=== PATIENT | male | born 1955 | race Two or more races ===

== ENCOUNTER 2020-01-27 12:10 | Emergency (ER) | payer OTHER ==
[~2020-01-27] VITALS: Ht 165.1 cm; Wt 68.9 kg
[2020-01-27] MEDS ORDERED: SODIUM CHLORIDE 0.9% 1,000 ML IV ONE (12:23)
[2020-01-27 12:40] VITALS: BP 138/84
[2020-01-27 13:39] LABS: Basophils # (auto) 0.1 10 ^3/uL (0-0.2); Basophils % (auto) 1.5 % (0.0-2.0); Eosinophils # (auto) 0.2 10 ^3/uL (0-0.8); Eosinophils % (auto) 3.8 % (0.0-7.0); Hematocrit 41.8 % (41.0-53.0); Hemoglobin 14.3 g/dL (13.5-17.5); Lymphocytes # (auto) 2.9 10 ^3/uL (0.4-5.4); Lymphocytes % (auto) 48.2 % (10.0-50.0); Mean Corpuscular Hgb Conc. 34.2 g/dL (32.0-36.0); Mean Corpuscular Volume 90.8 fL (80.0-100.0); Monocytes # (auto) 0.4 10 ^3/uL (0-1.3); Monocytes % (auto) 7.1 % (0.0-12.0); Neutrophils # (auto) 2.4 10 ^3/uL (1.6-8.6); Neutrophils % (auto) 39.4 % (37.0-80.0); Nucleated Red Blood Cells % 0.1 %; Platelet Count (auto) 194 10^3/uL (140-450); Red Cell Distribution Width 13.6 % (11.8-14.3)
[2020-01-27 13:57] LABS: Albumin 3.3 g/dL (3.4-5.0); Anion Gap 6 (5-15); Blood Urea Nitrogen 14 mg/dL (7-18); Calcium 7.8 mg/dL (8.5-10.1); Carbon Dioxide 26 mmol/L (21-32); Chloride 108 mmol/L (98-107); Glucose 99 mg/dL (74-106); Potassium 3.6 mmol/L (3.5-5.1); Sodium 140 mmol/L (136-145)
[2020-01-27 14:01] LABS: Urine Amorphous Crystal FEW /hpf (None Seen); Urine Bacteria NONE SEEN /hpf (None Seen); Urine Blood Negative /uL (Negative); Urine Specific Gravity 1.005 (1.001-1.035); Urine WBC 41 /hpf (0 - 3)
[2020-01-27 14:02] LABS: Alanine Aminotransferase 24 U/L (16-61); Alkaline Phosphatase 60 U/L (45-117); Aspartate Aminotransferase 11 U/L (15-37); BUN/Creatinine Ratio 13.9; Bilirubin, Total 0.4 mg/dL (0.2-1.0); GFR African American 96 mL/min; GFR Non-African American 79 mL/min; Total Protein 6.7 g/dL (6.4-8.2)
[2020-01-27 14:06] LABS: INR 0.97 (0.9-1.15); Partial Thromboplastin Time 27.5 sec (23.64-32.05)
== END 2020-01-27 15:15 | disposition home or self-care (01) ==
LOC: ER 12:10
DX: K92.2 Gastrointestinal hemorrhage, unspecified (principal); K64.9 Unspecified hemorrhoids
CPT/HCPCS: 36415; 71045; 74176; 80053; 81001; 84484; 85025; 85610; 85730; 99285; J7030

== ENCOUNTER 2020-06-21 11:43 | Inpatient (IN) | payer OTHER ==
[~2020-06-21] VITALS: Ht 165.1 cm; Wt 76.5 kg
[2020-06-21 12:40] LABS: Basophils # (auto) 0 10 ^3/uL (0-0.2); Basophils % (auto) 0.4 % (0.0-2.0); Eosinophils # (auto) 0 10 ^3/uL (0-0.8); Eosinophils % (auto) 0.4 % (0.0-7.0); Hematocrit 38.2 % (41.0-53.0); Hemoglobin 12.7 g/dL (13.5-17.5); Lymphocytes # (auto) 0.7 10 ^3/uL (0.4-5.4); Lymphocytes % (auto) 8.9 % (10.0-50.0); Mean Corpuscular Hemoglobin 29.9 pg (28.0-32.0); Mean Corpuscular Hgb Conc. 33.3 g/dL (32.0-36.0); Mean Corpuscular Volume 89.8 fL (80.0-100.0); Monocytes # (auto) 0.7 10 ^3/uL (0-1.3); Monocytes % (auto) 8.6 % (0.0-12.0); Neutrophils # (auto) 6.4 10 ^3/uL (1.6-8.6); Neutrophils % (auto) 81.7 % (37.0-80.0); Nucleated Red Blood Cells % 0.2 %; Platelet Count (auto) 407 10^3/uL (140-450); Red Blood Cells 4.26 10^6/uL (4.5-5.90); Red Cell Distribution Width 13.5 % (11.8-14.3); White Blood Cell 7.9 10^3/uL (4.4-10.8)
[2020-06-21 12:43] LABS: Albumin 2.1 g/dL (3.4-5.0); Calcium 8.6 mg/dL (8.5-10.1); Potassium 4.5 mmol/L (3.5-5.1)
[2020-06-21] MEDS ORDERED: DexAMETHasone 4 MG TAB PO ONE (12:45)
[2020-06-21] MEDS ORDERED: ASCORBIC ACID 500 MG TAB PO ONE (12:45)
[2020-06-21] MEDS ORDERED: AZITHROMYCIN 500MG/ 250ML 250 ML IV ONE (12:45)
[2020-06-21] MEDS ORDERED: ZINC SULFATE 220mg CAP or TAB PO ONE (12:45)
[2020-06-21 12:48] LABS: BUN/Creatinine Ratio 16.7; Bilirubin, Total 0.5 mg/dL (0.2-1.0); Total Protein 7.1 g/dL (6.4-8.2)
[2020-06-21] MEDS ORDERED: MORPHINE SULF INJ 2 MG/ML SYRINGE 1ML IV PRN ×3 (13:30→15:15)
[2020-06-21] MEDS ORDERED: NITROGLYCERIN 0.4 MG SL TAB SL PRN ×2 (13:30→15:15)
[2020-06-21] MEDS ORDERED: ASCORBIC ACID 500 MG TAB ONE (13:48)
[2020-06-21] MEDS ORDERED: ACETAMINOPHEN 325 MG TAB PO ONE (15:00)
[2020-06-21] MEDS ORDERED: ACETAMINOPHEN 500 MG TAB PO PRN (15:15)
[2020-06-21] MEDS ORDERED: ACETAMINOPHEN 325 MG TAB PO PRN (15:15)
[2020-06-21] MEDS ORDERED: HYDROcodone-ACET 5/325MG TAB PO PRN (15:15)
[2020-06-21] MEDS ORDERED: PIPERACILLIN-TAZOB 3.375GM 100 ML IV ONE (15:15)
[2020-06-21] MEDS ORDERED: FUROSEMIDE 20 MG/2 ML VIAL IV ONE (15:15)
[2020-06-21] MEDS ORDERED: FAMOTIDINE (10MG/ML) 2ML VL IV ONE (15:15)
[2020-06-21] MEDS ORDERED: LORazepam 0.5 MG TAB PO PRN (15:15)
[2020-06-21] MEDS ORDERED: THIAMINE 100mg/ml INJ (200mg/2ml VIAL) IV ONE (15:15)
[2020-06-21] MEDS ORDERED: ALUM & MAG HYDROX-SIMETH LIQ(MAALOX) 30 ML PO PRN (15:15)
[2020-06-21] MEDS ORDERED: ENOXAPARIN SOD 80 MG/0.8ML SYRINGE SC ONE (15:15)
[2020-06-21] MEDS ORDERED: VANCOMYCIN PER PHARMACY 0 MG IV SCH (15:15)
[2020-06-21] MEDS ORDERED: ONDANSETRON HCL 4 MG/2 ML VIAL IV PRN (15:15)
[2020-06-21] MEDS ORDERED: IBUP200T76 PO (15:24)
[2020-06-21] MEDS ORDERED: MULT-928 PO (15:24)
[2020-06-21] MEDS ORDERED: ASPI-264 PO (15:24)
[2020-06-21] MEDS ORDERED: ACET-1304 PO (15:24)
[2020-06-21] MEDS ORDERED: ALBUAER3 IN (15:25)
[2020-06-21] MEDS: SODIUM CHLORIDE 0.9% 1,000 ML IV SCH (16:33)
[2020-06-21 16:43] LABS: Cholesterol 140 mg/dL (< 200); HDL Cholesterol 21 mg/dL (40-59); LDL Cholesterol 105 mg/dL (< 100); Triglycerides 158 mg/dL (< 150)
[2020-06-21 16:51] LABS: Lactate Dehydrogenase 335 U/L (87-241)
[2020-06-21 16:58] LABS: CRP High Sensitivity > 19.0 mg/dL (< 0.3)
[2020-06-21 17:50] VITALS: BP 136/79
[2020-06-21] MEDS ORDERED: VANCOMYCIN 1GM/250ML 250 ML IV SCH (18:00)
[2020-06-21] MEDS: FUROSEMIDE 20 MG/2 ML VIAL IV SCH (18:58)
[2020-06-21 21:00] VITALS: BP 136/79
[2020-06-21] MEDS: PIPERACILLIN-TAZOB 3.375GM 100 ML IV SCH (21:26)
[2020-06-21 22:00] VITALS: BP 136/79
[2020-06-21] MEDS: BUDESONIDE (INHALATION) 180 MCG IH IN SCH (22:00)
[2020-06-21] MEDS: ALBUTEROL SULF HFA 90MCG INH 200DOSE IN SCH (22:00)
[2020-06-21] MEDS ORDERED: ENOXAPARIN SOD 80 MG/0.8ML SYRINGE SC SCH (22:00)
[2020-06-21] MEDS: FAMOTIDINE (10MG/ML) 2ML VL IV SCH (22:54)
[2020-06-21] MEDS: methylPREDNISolone SOD SUCC 40 MG/ML VL IV SCH (22:54)
[2020-06-21] MEDS: ATORVASTATIN 20 MG TAB PO SCH (22:55)
[2020-06-22] MEDS ORDERED: VANCOMYCIN 1GM/250ML 250 ML IV SCH
[2020-06-22] MEDS ORDERED: INFLUENZA QUAD 2020-2021 0.5 ML SYRG IM ONE (02:45)
[2020-06-22] MEDS ORDERED: PNEUMOCOCCAL VACC POLYS 25 MCG/0.5 ML VIAL IM ONE (02:45)
[2020-06-22] MEDS: PIPERACILLIN-TAZOB 3.375GM 100 ML IV SCH ×2 (03:03→09:52)
[2020-06-22] MEDS: ENOXAPARIN SOD 80 MG/0.8ML SYRINGE SC SCH ×2 (04:18→17:09)
[2020-06-22] MEDS: SODIUM CHLORIDE 0.9% 1,000 ML IV SCH ×2 (04:35→17:40)
[2020-06-22 05:00] VITALS: BP 134/90
[2020-06-22 06:32] LABS: Basophils # (auto) 0 10 ^3/uL (0-0.2); Basophils % (auto) 0.3 % (0.0-2.0); Eosinophils # (auto) 0 10 ^3/uL (0-0.8); Eosinophils % (auto) 0.1 % (0.0-7.0); Hematocrit 39.3 % (41.0-53.0); Hemoglobin 13.5 g/dL (13.5-17.5); Lymphocytes # (auto) 0.8 10 ^3/uL (0.4-5.4); Lymphocytes % (auto) 16.6 % (10.0-50.0); Mean Corpuscular Hemoglobin 31.1 pg (28.0-32.0); Mean Corpuscular Hgb Conc. 34.4 g/dL (32.0-36.0); Mean Corpuscular Volume 90.4 fL (80.0-100.0); Monocytes # (auto) 0.2 10 ^3/uL (0-1.3); Monocytes % (auto) 4.4 % (0.0-12.0); Neutrophils # (auto) 3.8 10 ^3/uL (1.6-8.6); Neutrophils % (auto) 78.6 % (37.0-80.0); Nucleated Red Blood Cells % 0.1 %; Platelet Count (auto) 461 10^3/uL (140-450); Red Blood Cells 4.35 10^6/uL (4.5-5.90); Red Cell Distribution Width 13.5 % (11.8-14.3); White Blood Cell 4.9 10^3/uL (4.4-10.8)
[2020-06-22] MEDS: FUROSEMIDE 20 MG/2 ML VIAL IV SCH (06:34)
[2020-06-22 06:35] LABS: Albumin 2.1 g/dL (3.4-5.0); Calcium 8.5 mg/dL (8.5-10.1); Potassium 4.3 mmol/L (3.5-5.1)
[2020-06-22] MEDS: methylPREDNISolone SOD SUCC 40 MG/ML VL IV SCH (06:35)
[2020-06-22 06:38] LABS: BUN/Creatinine Ratio 16.5
[2020-06-22 06:40] LABS: Bilirubin, Total 0.7 mg/dL (0.2-1.0); Total Protein 7.6 g/dL (6.4-8.2)
[2020-06-22 09:00] VITALS: BP 135/89
[2020-06-22] MEDS: ALBUTEROL SULF HFA 90MCG INH 200DOSE IN SCH ×2 (09:33→20:53)
[2020-06-22] MEDS: BUDESONIDE (INHALATION) 180 MCG IH IN SCH ×2 (09:33→20:53)
[2020-06-22] MEDS: FAMOTIDINE (10MG/ML) 2ML VL IV SCH ×2 (09:52→23:04)
[2020-06-22] MEDS: ASPirin 81 mg TAB PO SCH (09:52)
[2020-06-22] MEDS: CHOLECALCIFEROL (VITD3) 2,000 UNIT CAP PO SCH (09:53)
[2020-06-22] MEDS: ZINC SULFATE 220mg CAP or TAB PO SCH (09:53)
[2020-06-22] MEDS: ASCORBIC ACID 1,000 MG TAB PO SCH (09:53)
[2020-06-22] MEDS ORDERED: THIAMINE 100mg/ml INJ (200mg/2ml VIAL) IV SCH (10:00)
[2020-06-22 13:02] VITALS: BP 141/88
[2020-06-22] MEDS ORDERED: IOHEXOL 350 MG/ML 100ML IJ ONE (15:52)
[2020-06-22 17:00] VITALS: BP 155/86
[2020-06-22] MEDS: AZITHROMYCIN 250 MG TAB PO SCH (17:09)
[2020-06-22 17:30] VITALS: BP 144/80
[2020-06-22] MEDS ORDERED: REMDESIVIR 200 MG in NS 210ml LOADING DOSE ADULT IV ONE (20:00)
[2020-06-22 22:00] VITALS: BP 135/80
[2020-06-22] MEDS: ATORVASTATIN 20 MG TAB PO SCH (23:04)
[2020-06-23] MEDS: ENOXAPARIN SOD 80 MG/0.8ML SYRINGE SC SCH ×2 (04:09→10:12)
[2020-06-23 05:00] VITALS: BP 129/82
[2020-06-23 06:02] LABS: Basophils # (auto) 0 10 ^3/uL (0-0.2); Basophils % (auto) 0.1 % (0.0-2.0); Eosinophils # (auto) 0 10 ^3/uL (0-0.8); Eosinophils % (auto) 0.1 % (0.0-7.0); Hematocrit 36.1 % (41.0-53.0); Hemoglobin 12.6 g/dL (13.5-17.5); Lymphocytes # (auto) 1.1 10 ^3/uL (0.4-5.4); Lymphocytes % (auto) 11.8 % (10.0-50.0); Mean Corpuscular Hemoglobin 31.1 pg (28.0-32.0); Mean Corpuscular Hgb Conc. 34.8 g/dL (32.0-36.0); Mean Corpuscular Volume 89.2 fL (80.0-100.0); Monocytes # (auto) 0.9 10 ^3/uL (0-1.3); Monocytes % (auto) 9.5 % (0.0-12.0); Neutrophils # (auto) 7.5 10 ^3/uL (1.6-8.6); Neutrophils % (auto) 78.5 % (37.0-80.0); Nucleated Red Blood Cells % 0.1 %; Platelet Count (auto) 516 10^3/uL (140-450); Red Blood Cells 4.04 10^6/uL (4.5-5.90); Red Cell Distribution Width 13.5 % (11.8-14.3); White Blood Cell 9.6 10^3/uL (4.4-10.8)
[2020-06-23] MEDS: ALBUTEROL SULF HFA 90MCG INH 200DOSE IN SCH ×3 (06:14→22:53)
[2020-06-23] MEDS: BUDESONIDE (INHALATION) 180 MCG IH IN SCH ×2 (06:14→22:53)
[2020-06-23 06:21] LABS: Potassium 4.3 mmol/L (3.5-5.1)
[2020-06-23 06:28] LABS: BUN/Creatinine Ratio 26.1; Bilirubin, Total 0.3 mg/dL (0.2-1.0); Calcium 8.1 mg/dL (8.5-10.1); Total Protein 6.4 g/dL (6.4-8.2)
[2020-06-23 09:00] VITALS: BP 125/78
[2020-06-23] MEDS ORDERED: PATIENTS OWN MEDICATION IV SCH (10:00)
[2020-06-23] MEDS: DexAMETHasone SOD PHOS 10MG/1ML VIAL INJ IV SCH (10:10)
[2020-06-23] MEDS: SODIUM CHLORIDE 0.9% 1,000 ML IV SCH ×2 (10:10→21:36)
[2020-06-23] MEDS: FAMOTIDINE (10MG/ML) 2ML VL IV SCH ×2 (10:11→21:36)
[2020-06-23] MEDS: ZINC SULFATE 220mg CAP or TAB PO SCH (10:11)
[2020-06-23] MEDS: ASCORBIC ACID 1,000 MG TAB PO SCH (10:11)
[2020-06-23] MEDS: CHOLECALCIFEROL (VITD3) 2,000 UNIT CAP PO SCH (10:11)
[2020-06-23] MEDS: ASPirin 81 mg TAB PO SCH (10:11)
[2020-06-23] MEDS: AZITHROMYCIN 250 MG TAB PO SCH (10:12)
[2020-06-23 13:00] VITALS: BP 146/90
[2020-06-23 17:00] VITALS: BP 129/78
[2020-06-23] MEDS: REMDESIVIR 100mg in NS 230ml DAILYx4DAYS (NO VENT) IV SCH (18:20)
[2020-06-23] MEDS: ATORVASTATIN 20 MG TAB PO SCH (21:36)
[2020-06-23 22:00] VITALS: BP 132/83
[2020-06-24] MEDS: ENOXAPARIN SOD 80 MG/0.8ML SYRINGE SC SCH (04:00)
[2020-06-24 05:00] VITALS: BP 135/84
[2020-06-24 06:44] LABS: Basophils # (auto) 0 10 ^3/uL (0-0.2); Eosinophils # (auto) 0 10 ^3/uL (0-0.8); Eosinophils % (auto) 0.4 % (0.0-7.0); Nucleated Red Blood Cells % 0.1 %
[2020-06-24 06:47] LABS: Hematocrit 36.5 % (41.0-53.0); Hemoglobin 12.3 g/dL (13.5-17.5); Lymphocytes # (auto) 1.4 10 ^3/uL (0.4-5.4); Lymphocytes % (auto) 18.7 % (10.0-50.0); Mean Corpuscular Hemoglobin 30.5 pg (28.0-32.0); Mean Corpuscular Hgb Conc. 33.8 g/dL (32.0-36.0); Mean Corpuscular Volume 90.1 fL (80.0-100.0); Monocytes # (auto) 0.7 10 ^3/uL (0-1.3); Monocytes % (auto) 9.6 % (0.0-12.0); Neutrophils # (auto) 5.1 10 ^3/uL (1.6-8.6); Neutrophils % (auto) 71.3 % (37.0-80.0); Platelet Count (auto) 478 10^3/uL (140-450); Red Blood Cells 4.05 10^6/uL (4.5-5.90); Red Cell Distribution Width 13.8 % (11.8-14.3); White Blood Cell 7.2 10^3/uL (4.4-10.8)
[2020-06-24 07:26] LABS: Potassium 4.3 mmol/L (3.5-5.1)
[2020-06-24] MEDS: ALBUTEROL SULF HFA 90MCG INH 200DOSE IN SCH ×2 (07:28→14:43)
[2020-06-24] MEDS: BUDESONIDE (INHALATION) 180 MCG IH IN SCH (07:28)
[2020-06-24 07:36] LABS: Calcium 8.5 mg/dL (8.5-10.1)
[2020-06-24 07:45] LABS: Bilirubin, Total 0.4 mg/dL (0.2-1.0); Total Protein 6.3 g/dL (6.4-8.2)
[2020-06-24 09:00] VITALS: BP 131/70
[2020-06-24] MEDS: FAMOTIDINE (10MG/ML) 2ML VL IV SCH (10:11)
[2020-06-24] MEDS: DexAMETHasone SOD PHOS 10MG/1ML VIAL INJ IV SCH (10:11)
[2020-06-24] MEDS: CHOLECALCIFEROL (VITD3) 2,000 UNIT CAP PO SCH (10:12)
[2020-06-24] MEDS: ASCORBIC ACID 1,000 MG TAB PO SCH (10:12)
[2020-06-24] MEDS: AZITHROMYCIN 250 MG TAB PO SCH (10:12)
[2020-06-24] MEDS: ZINC SULFATE 220mg CAP or TAB PO SCH (10:12)
[2020-06-24] MEDS: ASPirin 81 mg TAB PO SCH (10:12)
[2020-06-24] MEDS: SODIUM CHLORIDE 0.9% 1,000 ML IV SCH (10:13)
[2020-06-24] MEDS ORDERED: SIMETHICONE 40 MG/0.6 ML ORAL DROP PO SCH (12:00)
[2020-06-24 13:00] VITALS: BP 136/83
[2020-06-24] MEDS ORDERED: ALBUAER3 IN (13:28)
[2020-06-24] MEDS ORDERED: DEXA6TAB6 PO (13:28)
[2020-06-24] MEDS ORDERED: ZINC220T6 PO (13:28)
[2020-06-24] MEDS ORDERED: AZIT250T9 PO (13:28)
[2020-06-24] MEDS ORDERED: CHOL1CAP47 PO (13:28)
[2020-06-24] MEDS ORDERED: ASCO10003 PO (13:28)
[2020-06-24 14:41] VITALS: BP 134/90
[2020-06-24] MEDS: REMDESIVIR 100mg in NS 230ml DAILYx4DAYS (NO VENT) IV SCH (14:50)
[2020-06-24 15:53] VITALS: BP 136/83
[2020-06-24] MEDS ORDERED: SIMETHICONE 80 MG CHEWABLE TABLET PO SCH (18:00)
== END 2020-06-24 16:20 | disposition home health service (06) | DRG 177 ==
LOC: ER 11:43 → TELE 11:44 → TELE-EAST 20:30
PROVIDERS: ADMIT Hospitalist; ATTEND Internal Medicine
DX: U07.1 COVID-19 (principal); J12.89 Other viral pneumonia; J96.01 Acute respiratory failure with hypoxia; J44.0 Chronic obstructive pulmonary disease with (acute) lower respiratory infection; J90 Pleural effusion, not elsewhere classified; K64.8 Other hemorrhoids; R79.82 Elevated C-reactive protein (CRP); J44.9 Chronic obstructive pulmonary disease, unspecified; E78.5 Hyperlipidemia, unspecified; K44.9 Diaphragmatic hernia without obstruction or gangrene; K76.89 Other specified diseases of liver; Z80.0 Family history of malignant neoplasm of digestive organs; Z80.1 Family history of malignant neoplasm of trachea, bronchus and lung; Z82.49 Family history of ischemic heart disease and other diseases of the circulatory system; Z87.891 Personal history of nicotine dependence; Z79.82 Long term (current) use of aspirin; Z84.1 Family history of disorders of kidney and ureter; Z84.89 Family history of other specified conditions
CPT/HCPCS: 36415; 36600; 71045; 71275; 76705; 80053; 80061; 82728; 82805; 83036; 83605; 83615; 83735; 84443; 84484; 85025; 85379; 86141; 86710; 87040; 87426; 93005; 93970; 94640; 96365; 96366; 96367; 96372; 96375; G0378; J1100; J2543; J3490

== ENCOUNTER 2022-03-03 08:17 | Emergency (ER) | payer OTHER ==
[~2022-03-03 08:17] MED LIST: ACET-1304 PO; ALBUAER3 IN; ASCO10003 PO; ASPI325T33 PO; AZIT250T9 PO; CHOL1CAP47 PO; DEXA6TAB6 PO; IBUP200T76 PO; MULT-928 PO; ZINC220T6 PO
[2022-03-03 09:31] LABS: Urine Bacteria NONE SEEN /hpf (None Seen); Urine Blood 3+ /uL (Negative); Urine Specific Gravity 1.023 (1.001-1.035); Urine WBC 732 /hpf (0 - 3); Urine WBC Clumps PRESENT /hpf (None Seen)
[2022-03-03 11:15] LABS: Basophils # (auto) 0.1 10 ^3/uL (0-0.2); Eosinophils # (auto) 0.1 10 ^3/uL (0-0.8); Hematocrit 45.9 % (41.0-53.0); Hemoglobin 15.3 g/dL (13.5-17.5); Lymphocytes % (auto) 27.1 % (10.0-50.0); Mean Corpuscular Hemoglobin 29.5 pg (28.0-32.0); Mean Corpuscular Hgb Conc. 33.3 g/dL (32.0-36.0); Mean Corpuscular Volume 88.7 fL (80.0-100.0); Monocytes # (auto) 0.4 10 ^3/uL (0-1.3); Monocytes % (auto) 5.9 % (0.0-12.0); Neutrophils # (auto) 4.7 10 ^3/uL (1.6-8.6); Nucleated Red Blood Cells % 0.1 %; Red Blood Cells 5.17 10^6/uL (4.5-5.90); Red Cell Distribution Width 13.7 % (11.8-14.3); White Blood Cell 7.3 10^3/uL (4.4-10.8)
[2022-03-03 11:45] LABS: Albumin 3.9 g/dL (3.4-5.0); Potassium 4.1 mmol/L (3.5-5.1)
[2022-03-03 11:48] LABS: BUN/Creatinine Ratio 14.8; Bilirubin, Total 0.7 mg/dL (0.2-1.0); Total Protein 7.6 g/dL (6.4-8.2)
[2022-03-03 13:19] VITALS: BP 134/85
== END 2022-03-03 13:20 | disposition home or self-care (01) ==
LOC: ER 08:17
DX: R33.9 Retention of urine, unspecified (principal); N40.0 Benign prostatic hyperplasia without lower urinary tract symptoms
CPT/HCPCS: 36415; 74176; 80053; 81001; 84484; 85025